=== PATIENT | female | born 1970 | race Two or more races ===

== ENCOUNTER 2023-04-22 07:09 | Emergency (ER) | payer BC, MEDICAID, SELFPAY ==
[2023-04-22 07:18] VITALS: BP 147/74; PULSE 75; RESP 20; TEMP 37.4; O2SAT 97; BMI 40.7
--- NOTE | 2023-04-22 07:57 | ED_ITS ---
HPI - Eye Problem General Chief complaint: Eye Problems Stated complaint: swollen eyes Time Seen by Provider: 04/22/23 07:18 Source: patient Mode of arrival: ambulatory Limitations: no limitations History of Present Illness chief complaint: eye pain and eye redness Onset (ago): day(s) (3) Onset description: gradual Duration: constant Location: both eyes Eye Symptoms: burning, redness, pain, discharge and photophobia Place: home Mechanism: none Severity: severe If Pain, Quality: burning and throbbing Associated symptoms: none Treatments Prior to Arrival: OTC eye drops Related Data Previous Rx's Medication Instructions Recorded erythromycin 5 mg/gram (0.5 %) eye 1 appl ophthalmic (eye) .hs 7 days 04/22/23 ointment #3.5 grams moxifloxacin 0.5 % viscous eye 1 drp ophthalmic (eye) BID 7 days 04/22/23 drops #3 mL Allergies Allergy/AdvReac Type Severity Reaction Status Date / Time No Known Allergies Allergy Verified 04/22/23 07:21 [facility] Social History Social History Advance Directives: No Physical Exam Vital Signs: Vital Signs: Last Vital Signs Temp 99.3 F 04/22/23 07:18 Pulse 75 04/22/23 07:18 Resp 20 04/22/23 07:18 BP 147/74 H 04/22/23 07:18 Pulse Ox 97 04/22/23 07:18 O2 Del Method Room Air 04/22/23 07:18 BMI result Body Mass Index 40.7 GEN: Well developed, no acute distress, alert, oriented HEENT: Normocephalic, atraumatic, normal external ears, nose appears normal Eyes: Conjunctival injection, tearing particularly on the left eye, EOMI, PERRLA, pressure on the right eye was 9 mm, pressure left eye 7 mm, negative fluorescein exam Neck: Supple, no lymphadenopathy Respiratory: Talks in complete sentences, no respiratory distress Extremities: No clubbing cyanosis or edema Neurologic: No focal neurologic deficits, cranial nerves 2-12 intact, gait normal Skin: No rash Course Course Course Narrative: Patient presents with bilateral eye pain, redness, tearing, photophobia. Examination revealed conjunctival injection. There is no evidence of acute glaucoma based on eye pressures, evidence of corneal abrasions. Will treat patient with topical antibiotics referred Ophthalmology. Most likely diagnosis is acute conjunctivitis. [id number], allergy eyedrops were not helpful. Medical Decision Making Medical Decision Making MDM Narrative: Patient presents with bilateral eye pain, redness, photophobia. Examination revealed no evidence of acute closed angle glaucoma, pressure was normal. There is no evidence of corneal abrasion or eye trauma. Most likely diagnosis is conjunctivitis. Differential diagnosis below Differential Diagnosis Differential Diagnoses: The differential diagnosis associated with the presentation includes (Viral conjunctivitis, allergic conjunctivitis, bacterial congestion iritis, less likely iritis or uveitis) Conjunctivitis Prescription Management I considered prescription management with: Antibiotic Discharge Plan Discharge Clinical Impression: Acute conjunctivitis Instructions: How to Use Eye Drops (ED), Conjunctivitis (ED) Prescriptions: New moxifloxacin 0.5 % drops, viscous 1 drp ophthalmic (eye) BID 7 Days Qty: 3 0RF erythromycin 5 mg/gram (0.5 %) ointment 1 appl ophthalmic (eye) .hs 7 Days Qty: 3.5 0RF Referrals: Kaushik Bazan [Physician] - 5 days
[2023-04-22] MEDS: Tetracaine HCl/PF 0.5% Oph Sol 4 ML DROPS 1 DROP EYE-BOTH (08:09)
== END 2023-04-22 08:10 | disposition home or self-care (01) ==
PROVIDERS: Emergency Provider Emergency Medicine
DX: H10.33 Unspecified acute conjunctivitis, bilateral (principal)
CPT/HCPCS: 99282; 99283

== ENCOUNTER 2023-08-11 06:36 | Emergency (ER) | payer BC, MEDICAID, SELFPAY ==
[2023-08-11 07:02] VITALS: BP 108/64; PULSE 100; RESP 19; TEMP 36.9; O2SAT 97; BMI 39.9
[2023-08-11 07:43] LABS: IDNOW Serial# 9DB6401D; Influenza A Positive (Negative); Influenza B2 Negative (Negative)
[2023-08-11 07:44] LABS: COVID-19 Test Negative (Negative); IDNOW Serial# BCCEAD1C
[2023-08-11 07:44] LABS: IDNOW Serial# 08D9AD1C; Strep A Nucleic Acid Negative (Negative)
--- NOTE | 2023-08-11 07:54 | ED_ITS ---
HPI - URI/Sore Throat General Chief Complaint: Upper Respiratory Symptoms Stated Complaint: body pain, throat pain Time Seen by Provider: 08/11/23 07:22 Source: patient Mode of arrival: ambulatory Limitations: no limitations History of Present Illness HPI Narrative: 52-year-old female with no significant PMHx presents to the ED today with sore throat, congestion, fever, and cough x3 days, worsening. Reports T-max of 104? at home. Has been taking Tylenol with some relief. Additionally reports left- sided chest wall discomfort secondary to coughing. Admits being around relative from [place] who recently tested positive for influenza. Denies chills, difficulty swallowing or breathing, ear pain, sinus pain, chest pain, shortness of breath, nausea/ vomiting, abdominal pain, diarrhea /constipation. No recent travel. Has been able to eat and drink without issue. Related Data Previous Rx's Medication Instructions Recorded erythromycin 5 mg/gram (0.5 %) eye 1 appl ophthalmic (eye) .hs 7 days 04/22/23 ointment #3.5 grams moxifloxacin 0.5 % viscous eye 1 drp ophthalmic (eye) BID 7 days 04/22/23 drops #3 mL Allergies Allergy/AdvReac Type Severity Reaction Status Date / Time No Known Allergies Allergy Verified 08/11/23 07:02 Review of Systems Review of Systems: Constitutional: + fever, + chills, No fatigue, No malaise ENT/Mouth: No ear pain, No hearing loss, No nasal congestion, No sinus pain, No rhinorrhea, + sore throat Eyes: No eye pain, No swelling, No redness, No vision changes, No foreign body, No discharge Cardio: No chest pain, No palpitations, No dyspnea on exertion, No orthopnea, No edema Respiratory: No SOB, + cough, No sputum, No wheezing, No dyspnea, No hemoptysis GI: No nausea, No vomiting, No hematemesis, No abdominal pain, No diarrhea, No constipation, No hematochezia, No melena : No irregular bleeding, No dysuria, No frequency, No urgency, No hesitancy, No hematuria MSK: No back pain, No neck pain, No joint pain, No myalgias Skin: No skin lesions, No rashes Neuro: No weakness, No numbness, No paresthesias, No LOC, No dizziness, No headache Psych: No anxiety/panic, No depression, No SI/HI, No AH/VH Heme/Lymph: No bruising, No bleeding, No lymphadenopathy Endocrine: No Polyuria, No Polydipsia, No Temperature Intolerance All other systems reviewed and are negative. [facility] Past Medical History Attestation statement: The following information was validated with the patient. Source: old records reviewed and nursing notes reviewed Social History Social History Advance Directives: No Physical Exam Vital Signs: Vital Signs: Last Vital Signs Temp 98.4 F 08/11/23 07:02 Pulse 100 08/11/23 07:02 Resp 19 08/11/23 07:02 BP 108/64 08/11/23 07:02 Pulse Ox 97 08/11/23 07:02 O2 Del Method Room Air 08/11/23 07:02 BMI result Body Mass Index 39.9 Vitsl signs stable. Afebrile. General: Nontoxic appearing. NAD Skin: Warm and dry. No rashes or lesions. Head: Normocephalic, atraumatic. EENT: Conjunctiva clear. PERRLA. EOM intact. Moist mucous membranes. Controlling secretions, speaking in full sentences. Posterior oropharynx without erythema or exudate. Tonsils normal. Uvula midline. No mastoid tenderness. EAC clear. Neck: Supple without LAD. Normal ROM. Trachea midline. Cardiac: Chest wall symmetric. RRR. S1 and S1 appreciated. No MRG. No JVD. Chest: mild chest wall tenderness To palpation, reproducible. No crepitus or deformity. Lungs: CTA bilaterally. No rales, rhonchi, or wheezes. Normal respiratory effort without accessory muscle use. Abdomen: No visible lesions or scars. Soft, non-tender, non-distended. No rebound tenderness or guarding. Normoactive BS x4. Spine: No midline spinous tenderness. No deformity or step off. Ext: Upper and lower extremities atraumatic. Capillary refill <2 seconds in all extremities. Pulses 2+ equal b/l. No edema, cyanosis, or clubbing. Neuro: Alert and oriented x3. Normal speech. CN 2-12 grossly intact. NV intact distally. Reflexes 2+ bilaterally. Psych: Appropriate mood and affect. Responds appropriately to questions. Course Course Course Narrative: 0800-- patient nontoxic appearing. Afebrile. Lungs CTA b/l > pneumonia or p neumothorax unlikely. Posterior oropharynx without erythema or exudate, uvula midline > Unlikely strep. > patient serology positive for influenza. Discussed starting Tamiflu and advised patient that it can decrease symptoms by about 1 day. Informed patient of the side effects. Patient declined tamiflu administration. Patient to be discharged home as symptoms consistent with influenza. Advised to take Motrin and Tylenol PRN fevers or body aches, rest and consume adequate food/drink. Will provide patient with a work note for the next couple of days. Discussed return precautions. All questions answered. Patient agreeable with plan. Stable for discharge home. Medical Decision Making Medical Decision Making [facility] Narrative: 08-- 52-year-old female with no significant past medical history presents to the ED today with sore throat, congestion, fever, and cough x3 days. Vital signs stable. Patient nontoxic appearing, in no acute distress. No lymphadenopathy. Moist mucous membranes, posterior oropharynx without erythema, edema, exudates, uvula midline, controlling secretions, speaking in full sentences, chest wall tender to palpation on the left, reproducible, no crepitus or deformity. Lungs clear to auscultation bilaterally. Clinical concern for a viral syndrome vs strep vs tonsillitis. Low suspicion for [employer] or retropharyngeal abscess or pneumonia. Unlikely compromised airway, epiglottitis, pneumothorax, ACS. Plan: Serology Differential Diagnosis Differential Diagnoses: The differential diagnosis associated with the presentation includes Clinical concern for a viral syndrome vs strep vs tonsillitis. Low suspicion for [employer] or retropharyngeal abscess, pneumonia. Unlikely compromised airway, epiglottitis, pneumothorax, ACS. Admission/Observation Not indicated Lab Data [facility] Lab Attestation statement: I reviewed the patient's lab results. See above course narrative. Labs: Lab Results 08/11/23 08/11/23 Range/Units 07:05 07:06 COVID-19 ([facility]) Negative (Negative) COVID-19 Clin Com See Note Influenza Type A ([facility]) Positive A (Negative) Influenza Type B ([facility]) Negative (Negative) Influenza A & B Note See Note S. pyogenes GrpA [facility]ON Negative (Negative) External Record Review External record reviewed: Inpatient record Prescription Management I considered prescription management with: Antiviral (declined tamiflu) Critical Care Time Critical Care Time Critical Care Time: No Discharge Plan Discharge Clinical Impression: Influenza Patient Disposition: Home, Self-Care Instructions: Influenza (DC) Additional Instructions: Today you tested positive for influenza.? Take Ibuprofen or Tylenol as needed for fevers or body aches.? Drink plenty of fluids and get rest. Follow-up with your primary care provider this week. Return to the emergency department with new or worsening symptoms. In case of emergency call 911 Prescriptions: No Action moxifloxacin 0.5 % drops, viscous 1 drp ophthalmic (eye) BID 7 Days Qty: 3 0RF erythromycin 5 mg/gram (0.5 %) ointment 1 appl ophthalmic (eye) .hs 7 Days Qty: 3.5 0RF Referrals: Physician,None [Primary Care Provider] - Stand Alone Forms: Work/School Release Interventions: ED Discharge Assessment Last Done: 08/11/23 08:38 Discharge Date/Time: 08/11/23 08:39
== END 2023-08-11 08:39 | disposition home or self-care (01) ==
PROVIDERS: Emergency Medicine; Emergency Provider Emergency Medicine
DX: J10.1 Influenza due to other identified influenza virus with other respiratory manifestations (principal); J02.9 Acute pharyngitis, unspecified; Z20.822 Contact with and (suspected) exposure to COVID-19
CPT/HCPCS: 87502; 87635; 87651; 99282; 99283

== ENCOUNTER 2023-08-29 06:34 | Emergency (ER) | payer BC, MEDICAID, SELFPAY ==
--- NOTE | ~2023-08-29 | US_ITS ---
EXAMINATION: US ABDOMEN LIMITED CLINICAL INFORMATION: Right upper quadrant pain. COMPARISON: None available. TECHNIQUE: Real-time imaging of the right upper quadrant abdominal viscera. FINDINGS: PANCREAS: The pancreas is not well seen due to bowel gas. LIVER: The liver is normal in size. The liver contour is normal. There is diffuse increased liver parenchymal echogenicity, consistent with hepatic steatosis. No focal hepatic lesion. There is no intrahepatic biliary duct dilatation seen. GALLBLADDER: Normal. The gallbladder is physiologically distended without evidence of stones, sludge, polyps, wall thickening or pericholecystic fluid. COMMON BILE DUCT: Normal in caliber measuring 0.5 cm in diameter. RIGHT KIDNEY: Small calcification is seen in the mid kidney. No shadowing or twinkle artifact. No hydronephrosis. No renal calculi or focal parenchymal lesions. The kidney measures 11.6 cm in maximum dimension. FREE FLUID: None. US/US abdomen limited IMPRESSION: 1. Hepatic steatosis. 2. The pancreas is not well seen due to bowel gas.
[2023-08-29 07:15] VITALS: BP 119/64; PULSE 105; RESP 19; TEMP 36.5; O2SAT 96; BMI 38.9
--- NOTE | 2023-08-29 08:40 | ED_ITS ---
HPI - General Adult General Chief complaint: General Medical Stated complaint: Lower Abdominal Pain Time Seen by Provider: 08/29/23 08:32 Source: patient Mode of arrival: ambulatory Limitations: no limitations History of Present Illness HPI narrative: epigastric abdominal pain radiating to the back for the past 2 days. Some nausea, no vomiting. No history of gallstones, pancreatitis, no history of surgery. Onset (ago): day(s) Location: abdomen Radiation: back Severity: moderate Quality: aching Pain Consistency: constant Related Data Previous Rx's Medication Instructions Recorded erythromycin 5 mg/gram (0.5 %) eye 1 appl ophthalmic (eye) .hs 7 days 04/22/23 ointment #3.5 grams moxifloxacin 0.5 % viscous eye 1 drp ophthalmic (eye) BID 7 days 04/22/23 drops #3 mL cephalexin 500 mg capsule 500 mg PO Q6H 7 days #28 caps 08/29/23 Allergies Allergy/AdvReac Type Severity Reaction Status Date / Time No Known Allergies Allergy Verified 08/11/23 07:02 Review of Systems 2 Review of Systems: Yes all other systems are reviewed and are negative Neurologic: Denies Sensory deficit (Neuro) [facility] Social History Social History Alcohol intake: former Smoked in Last 30 Days: No Use of substances other than those prescribed or required for medical reasons: No Advance Directives: No Advance Directives Information Provided: Yes Physical Exam ED Vital Signs: Vital Signs - 24 hr 08/29/23 07:15 08/29/23 12:00 Temperature 97.7 F 98.6 F Pulse Rate 105 H 75 Respiratory Rate 19 18 Blood Pressure 119/64 118/76 Pulse Oximetry 96 94 Oxygen Delivery Method Room Air Room Air BMI result Body Mass Index 38.9 Const Other: appearing uncomfortable Nutritional Appearance: overweight Orientation/consciousness: oriented to person and patient oriented x3 Limitations: no limitations HENMT Head: Yes normal to inspection Ears: external ears normal General nose exam: Normal external nose present Mouth: Normal oral and palatal mucosa present and oropharynx normal Throat: Yes posterior oropharynx normal Eyes General: appearance normal, both eyes and all related structures Neck Neck: Yes normal visual inspection Chest Chest palpation & inspection: normal inspection of the chest Resp Auscultation: clear to auscultation bilaterally Cardio Jugular venous distension: no JVD Rate: regular rate Rhythm: regular rhythm Heart sounds: S1 normal heart sound present and S2 normal heart sound present GI Other: abdomen is soft, diffusely tender Auscultation: normal bowel sounds General: Yes no CVA tenderness Back/Spine/Pelvis Back: no CVA tenderness Skin General skin exam: no rashes or lesions noted Neuro General: oriented to person and patient oriented x3 Cranial nerves: Yes CN's II-XII intact bilaterally Motor exam (neuro): 5/5 motor strength present throughout Sensory Exam: No Sensory deficit (Neuro) Extrem General: Yes normal to inspection Psych Appearance: grossly normal Course Reevaluation(s) Reevaluation #1: Patient with UTI and fatty liver will dc home on keflex Time: 12:32 Medications Administered Discontinued Medications Generic Name Dose Route Start Last Admin Trade Name Freq PRN Reason Stop Dose Admin Ceftriaxone Sodium 1 gm/ 50 mls @ 100 mls/hr 08/29/23 09:53 08/29/23 11:39 Sodium Chloride IV 08/29/23 10:22 Infused ONCE ONE Infusion Morphine Sulfate 4 mg 08/29/23 08:42 08/29/23 08:58 Morphine Sulfate 4 Mg/Ml Cartridge IVPUSH 08/29/23 08:43 4 mg ONCE ONE Administration Protocol Ondansetron HCl 4 mg 08/29/23 08:42 08/29/23 08:56 Ondansetron Hcl 4 Mg/2 Ml Vial IVPUSH 08/29/23 08:43 4 mg ONCE ONE Administration Pantoprazole Sodium 40 mg 08/29/23 08:41 08/29/23 08:58 Pantoprazole Sodium 40 Mg/10 Ml Vial IVPUSH 08/29/23 08:42 40 mg ONCE ONE Administration Medical Decision Making Differential Diagnosis Differential Diagnoses: The differential diagnosis associated with the presentation includes (cholecystitis, biliary colic, UTI, pancreatitis were all considered) Admission/Observation Consideration of admission/observation: Escalation of care including admission/observation considered (upon arrival patient was considered for admission) Lab Data MDM Lab Attestation statement: I reviewed the patient's lab results. (notable for elevated LFTS and UTI) 08/29/23 08:45 08/29/23 08:45 Labs: Lab Results 08/29/23 08/29/23 Range/Units 08:45 09:00 WBC 7.6 (4.8-10.8) X10*3/uL RBC 4.51 (4.20-5.50) X10*6/uL Hgb 13.2 (12.0-16.0) g/dl Hct 40.3 (37.0-47.0) % MCV 89.4 (80.0-98.0) fL MCH 29.3 (27.0-33.0) pg MCHC 32.8 (31.0-35.0) g/dl RDW 13.0 (11.0-16.0) % Plt Count 243 (160-400) X10*3/uL MPV 10.2 (9.4-12.3) fL Immature Gran % (Auto) 0.5 H (0.0-0.4) % Neut % (Auto) 64.6 (45-73) % Lymph % (Auto) 25.4 (20-40) % [place] % (Auto) 8.2 (2-11) % Eos % (Auto) 0.9 (0-4) % Baso % (Auto) 0.4 (0-2) % Lymph # (Auto) 1.9 (1.2-4.9) X10*3/uL [place] # (Auto) 0.6 (0.1-1.2) X10*3/uL Eos # (Auto) 0.1 (0.0-0.4) X10*3/uL Baso # (Auto) 0.0 (0.0-0.2) X10*3/uL Abs Immat Gran (auto) 0.04 H (0.00-0.03) X10*3/uL Absolute Neuts (auto) 4.9 (2.0-8.3) x10*3/uL Absolute Nucleated RBC 0.000 (0.0-0.012) X10*3/uL Nucleated RBC % (auto) 0.0 (0.0-0.2) /100WBC Sodium 141 (135-145) mmol/L Potassium 4.0 (3.3-5.1) mmol/L Chloride 107 (96-108) mmol/L Carbon Dioxide 25 (22-29) mmol/L Anion Gap 13 (12-20) BUN 8 L (9-16) mg/dL Creatinine 0.81 (0.5-1.4) mg/dL Estim Creat Clear Calc 88.0 Estimated GFR > 60 Random Glucose 92 (60-115) mg/dL Calcium 9.3 (8.4-10.2) mg/dL Total Bilirubin 0.3 (0.0-1.0) mg/dL Direct Bilirubin 0.2 (0.0-0.5) mg/dL AST 36 H (5-31) U/L ALT 52 H (0-31) U/L Alkaline Phosphatase 131 H (39-117) U/L Total Protein 8.3 H (6.5-8.0) g/dL Albumin 3.8 (3.5-5.0) g/dL Lipase 36 (8-78) U/L Urine Color Yellow Urine Appearance Cloudy Urine pH 5.5 (5.0-9.0) Ur Specific [place] 1.010 (1.005-1.025) Urine Protein 100 (2+) H (Neg-Trace) mg/dL Urine Glucose (UA) Negative (Negative) mg/dL Urine Ketones Negative (Negative) mg/dL Urine Blood Trace H (Negative) Urine Nitrite Positive H (Negative) Ur Leukocyte Esterase Large (3+) H (Negative) Urine RBC 3-5 H (0-2) /HPF Urine WBC >50 H (0-5) /HPF Ur Squamous Epith Cells 0-2 (0-2) /HPF Urine Bacteria 1+ (None Seen) Hyaline Casts 0-2 (0-2) /LPF COVID-19 ([facility]) Negative (Negative) COVID-19 Clin Com See Note Influenza Type A ([facility]) Negative (Negative) Influenza Type B ([facility]) Negative (Negative) Influenza A & B Note See Note Independent Interpretation I performed an independent interpretation of an: Ultrasound (no stones) Radiology Impression Discussion of test interpretation with radiology: I have reviewed the radiologist's reading. (and agree, patient with fatty liver) Tests considered The following testing was considered but not selected: CT of abdomen considered but exam was nonfocal Chronic Conditions Patient?s care impacted by: Other (obesity) Discharge Plan Discharge Clinical Impression: Fatty infiltration of liver Urinary tract infection Qualifiers: Urinary tract infection type: acute cystitis Hematuria presence: without hematuria Qualified Code(s): N30.00 - Acute cystitis without hematuria Patient Disposition: Home, Self-Care Instructions: Urinary Tract Infection in Women (ED), Non-Alcoholic Fatty Liver Disease (ED) Prescriptions: New cephalexin 500 mg capsule 500 mg PO Q6H 7 Days Qty: 28 0RF No Action moxifloxacin 0.5 % drops, viscous 1 drp ophthalmic (eye) BID 7 Days Qty: 3 0RF erythromycin 5 mg/gram (0.5 %) ointment 1 appl ophthalmic (eye) .hs 7 Days Qty: 3.5 0RF Referrals: Physician,Unknown J [Primary Care Provider] - 1 week
--- NOTE | 2023-08-29 08:41 | ECG_ITS ---
Test Reason : epigastric pain Blood Pressure : / mmHG Vent. Rate : 088 BPM Atrial Rate : 088 BPM P-R Int : 122 ms QRS Dur : 072 ms QT Int : 376 ms P-R-T Axes : 015 013 020 degrees QTc Int : 454 ms Normal sinus rhythm Normal ECG When compared with ECG of 04-OCT-2011 15:56, No significant change was found Referred By: Kevin Steen Electronically Signed By:ARTURO CM
[2023-08-29] MEDS: ondansetron HCL 4 MG/2 ML VIAL IVPUSH (08:56)
[2023-08-29] MEDS: Morphine Sulfate 4 MG/ML CARTRIDGE IVPUSH (08:58)
[2023-08-29] MEDS: Pantoprazole Sodium 40 MG/10 ML VIAL IVPUSH (08:58)
[2023-08-29 09:05] LABS: MANUAL DIFF FLAG NO
[2023-08-29 09:08] LABS: Basophils Percent Auto 0.4 % (0-2); Eosinophils Absolute Auto 0.1 X10*3/uL (0.0-0.4); Eosinophils Percent Auto 0.9 % (0-4); Hematocrit 40.3 % (37.0-47.0); Hemoglobin 13.2 g/dl (12.0-16.0); Imm Gran Abs Auto 0.04 X10*3/uL (0.00-0.03); Imm Gran Pct Auto 0.5 % (0.0-0.4); Lymphocytes Absolute Auto 1.9 X10*3/uL (1.2-4.9); Lymphocytes Percent Auto 25.4 % (20-40); Mean Corpuscular HGB Conc 32.8 g/dl (31.0-35.0); Mean Corpuscular Hemoglobin 29.3 pg (27.0-33.0); Mean Corpuscular Volume 89.4 fL (80.0-98.0); Mean Platelet Volume 10.2 fL (9.4-12.3); Monocytes Absolute Auto 0.6 X10*3/uL (0.1-1.2); Monocytes Percent Auto 8.2 % (2-11); Neutrophils Absolute Auto 4.9 x10*3/uL (2.0-8.3); Neutrophils Percent Auto 64.6 % (45-73); Platelet Count 243 X10*3/uL (160-400); Red Blood Count 4.51 X10*6/uL (4.20-5.50); White Blood Count 7.6 X10*3/uL (4.8-10.8)
[2023-08-29 09:08] LABS: Appearance Urine Cloudy; Color Urine Yellow; Glucose Urine UA Negative (Negative); Leukocyte Esterase Urine Large (3+) (Negative); Nitrite Urine Positive (Negative); PH 5.5 (5.0-9.0); UMIC TRIGGER UACC YES; Urine Blood Trace (Negative); Urine Ketones Negative (Negative); Urine Protein 100 (2+) mg/dL (Neg-Trace)
[2023-08-29 09:10] LABS: Bacteria Urine 1+ (None Seen); Hyaline Casts Urine 0-2 /LPF (0-2); Squamous Epithelial Cell Urine 0-2 /HPF (0-2); UACC Culture Trigger YES; WBC Urine >50 /HPF (0-5)
[2023-08-29 09:23] LABS: Alanine Aminotransferase 52 U/L (0-31); Albumin Level 3.8 g/dL (3.5-5.0); Alkaline Phosphatase 131 U/L (39-117); Anion Gap 13 (12-20); Aspartate Amino Transferase 36 U/L (5-31); Bilirubin Direct 0.2 mg/dL (0.0-0.5); Bilirubin Total 0.3 mg/dL (0.0-1.0); Blood Urea Nitrogen 8 mg/dL (9-16); Calcium 9.3 mg/dL (8.4-10.2); Carbon Dioxide 25 mmol/L (22-29); Chloride 107 mmol/L (96-108); Estimated Glomerular Filt Rate > 60; Glucose Random 92 mg/dL (60-115); Lipase 36 U/L (8-78); Sodium 141 mmol/L (135-145); Total Protein 8.3 g/dL (6.5-8.0)
[2023-08-29 09:27] LABS: COVID-19 Test Negative (Negative); IDNOW Serial# 08D9AD1C; IDNOW Serial# BCCEAD1C; Influenza A Negative (Negative); Influenza B2 Negative (Negative)
[2023-08-29] MEDS: cefTRIAXone sodium 1 GM in 0.9 % Sodium Chloride 50 ML IV (10:21)
[2023-08-29 12:00] VITALS: BP 118/76; PULSE 75; RESP 18; TEMP 37; O2SAT 94
== END 2023-08-29 12:49 | disposition home or self-care (01) ==
PROVIDERS: Emergency Provider Emergency Medicine
DX: N30.00 Acute cystitis without hematuria (principal); K76.0 Fatty (change of) liver, not elsewhere classified; R10.11 Right upper quadrant pain; Z20.822 Contact with and (suspected) exposure to COVID-19; Z20.828 Contact with and (suspected) exposure to other viral communicable diseases; Z79.899 Other long term (current) drug therapy
CPT/HCPCS: 36415; 76705; 80053; 81001; 82248; 83690; 85025; 87086; 87502; 87635; 93005; 96365; 96366; 96375; 99284; J0696; J2270; J2405